=== PATIENT | female | born 1970 | race Caucasian/White ===

== ENCOUNTER 2017-08-11 07:43 | Day surgery (SDC) | payer BC ==
[~2017-08-11] VITALS: Ht 165.1 cm; Wt 78.9 kg
[2017-08-11] VITALS (18 sets, daily range): BP systolic 95–119; BP diastolic 56–74
[2017-08-11 08:39] LABS: BASOPHILS % (AUTO) 1.4 % (0.0-5.0); EOSINOPHILS % (AUTO) 3.9 % (0.0-8.0); HEMATOCRIT 42.2 % (36-48); LYMPHOCYTES % (AUTO) 20.9 % (21.0-51.0); MEAN CORPUSCULAR HEMOGLOBIN 31.2 pg (27.0-33.0); MEAN CORPUSCULAR HGB CONC 34.7 g/dL (32.0-36.0); MEAN CORPUSCULAR VOLUME 89.7 fL (79-99); MONOCYTES % (AUTO) 7.1 % (3.0-13.0); NEUTROPHILS % (AUTO) 66.7 % (40.0-77.0); NUCLEATED RED BLOOD CELLS 0.1 % (0.0-0.19); PLATELET COUNT (AUTO) 327 K/uL (130-400); RED BLOOD CELL COUNT(AUTO) 4.71 MIL/uL (4.00-5.50); RED CELL DISTRIBUTION WIDTH 12.9 % (11.0-15.5); WHITE BLOOD COUNT (AUTO) 8.6 K/uL (4.8-10.8)
[2017-08-11 08:45] LABS: CREATININE 0.8 mg/dL (0.5-1.5); POTASSIUM 4.5 mmol/L (3.5-5.1)
[2017-08-11] MEDS ORDERED: ROSU5TAB18 PO (09:02)
[2017-08-11] MEDS ORDERED: MONT10TA24 PO (09:02)
[2017-08-11] MEDS ORDERED: LEVO137T2 PO (09:02)
[2017-08-11] MEDS ORDERED: VALS1TAB81 PO (09:02)
[2017-08-11] MEDS ORDERED: HUMALOG PUMP (09:02)
[2017-08-11] MEDS ORDERED: CALDOLOR 800MG+NS 250ML 250 ML IV ONE (09:21)
[2017-08-11] MEDS ORDERED: LACTATED RINGERS 1000ML 0 ML IV ONE (09:21)
[2017-08-11] MEDS ORDERED: SODIUM CHLORIDE 0.9% 1000ML 1,000 ML IV ONE (09:22)
[2017-08-11] MEDS ORDERED: STRONG IODINE SOLUTION 30ML BOTTLE ONE (09:59)
[2017-08-11] MEDS ORDERED: PROPOFOL 10 MG/ML 20ML VIAL IV ONE (10:09)
[2017-08-11] MEDS ORDERED: LIDOCAINE HCL 2% JELLY 5 ML ONE (10:09)
[2017-08-11] MEDS ORDERED: LIDOCAINE HCL 4% LTA SOL 4 ML VIAL ONE (10:09)
[2017-08-11] MEDS ORDERED: MIDAZOLAM HCL 1 MG/ML 2ML VIAL ONE (10:09)
[2017-08-11] MEDS ORDERED: LIDOCAINE HCL-MPF 1% 5ML AMP IJ ONE (10:09)
[2017-08-11] MEDS ORDERED: ONDANSETRON HCL 4 MG/2 ML VIAL ONE (10:09)
[2017-08-11] MEDS ORDERED: FENTANYL CITRATE PF 50 MCG/1 ML 2ML VIAL ONE (10:10)
[2017-08-11] MEDS ORDERED: MEPERIDINE-PF 25 MG/ML SYG ONE (11:23)
== END 2017-08-11 13:05 | disposition home or self-care (01) ==
LOC: DAH 07:43
DX: R87.619 Unspecified abnormal cytological findings in specimens from cervix uteri (principal); E11.9 Type 2 diabetes mellitus without complications; E03.9 Hypothyroidism, unspecified; J45.909 Unspecified asthma, uncomplicated; F17.200 Nicotine dependence, unspecified, uncomplicated; Z82.49 Family history of ischemic heart disease and other diseases of the circulatory system; Z83.3 Family history of diabetes mellitus; E66.9 Obesity, unspecified
CPT/HCPCS: 36415; 57520; 80048; 82948 ×2; 84703; 85025; 88302; 88305; 88307; 96365; A4351; J1741; J2175; J2250; J2405; J2704; J3010; J3490; J7030; J7120